=== PATIENT | female | born 2000 | race Caucasian/White ===

== ENCOUNTER 2024-05-30 20:17 | Emergency (ER) | payer OTHER ==
[~2024-05-30] VITALS: Ht 175.3 cm; Wt 113.6 kg
[2024-05-30 20:27] VITALS: TEMP 97.7
[2024-05-31 00:45] VITALS: BP 133/82; PULSE 110
== END 2024-05-31 00:45 | disposition home or self-care (01) ==
LOC: COL.ER 20:17
DX: K59.00 Constipation, unspecified (principal)